=== PATIENT | male | born 1995 | race Caucasian/White ===

== ENCOUNTER 2020-10-12 18:26 | Emergency (ER) | payer MEDICAID ==
[~2020-10-12] VITALS: Ht 175.3 cm; Wt 81.6 kg
[2020-10-12 18:26] VITALS: BP_SYST 142
--- NOTE | 2020-10-12 18:26 | NUR ---
PT TO BED 5 FOR EVALUATION
--- NOTE | 2020-10-12 18:30 | NUR ---
DR. BRUNNER AT BEDSIDE TO EVALUATE PT STATUS
--- NOTE | 2020-10-12 18:30 | NUR ---
PT BIB EMS FOR ALTERED BEHAVIOR. PT WAS FOUND WONDERING THE NEIGHBORHOOD KNOCKING ON DOORS AND ACTING PARANOID. PT WAS RECENTLY RELEASED FROM [facility] AND ADMITS TO NONCOMPLIANCE OF MEDICATION FOR THE PAST FEW DAYS. PT REPORTS MARIJUANA USE AND PRE-EXISTING MENTAL HEALTH ISSUE.PT APPEARS SCARED AND HAS ERRATIC BEHAVIOR. PT CONTINUES TO HALLUCINATE AND BELIEVES THAT PEOPLE ARE COMING THROUGH THE MAR[place]. PT ATTACHED TO MONITOR WITH STABLE V/S.
--- NOTE | 2020-10-12 18:30 | NUR ---
JADE PAUL AT BEDSIDE TO WRITE 5150 HOLD/DTS.
[2020-10-12] MEDS ORDERED: HALOPERIDOL LACTATE 5 MG/ML VIAL ONE (18:33)
--- NOTE | 2020-10-12 18:40 | NUR ---
IV PLACED 20G HL IN RIGHT ARM.
[2020-10-12] MEDS ORDERED: HALOPERIDOL LACTATE 5 MG/ML VIAL IM ONE (18:45)
[2020-10-12] MEDS ORDERED: NACL 0.9% 1,000 ML IV ONE (18:45)
--- NOTE | 2020-10-12 18:45 | NUR ---
SECURITY AT BEDSIDE TO LEON PT FOR WEAPONS
--- NOTE | 2020-10-12 18:50 | NUR ---
I notified Astrid & Shady Sr, mother and father PT is here in ER "I'm okay" and give information re: Emergency Room PT. status Per patient requested. Patient Per Father Patient recent treatment centergiven Vivitrol injection3 weeks ago and "PT on Limictal for mild bipolar". Astrid Teague
[2020-10-12 18:57] LABS: BASOPHILS # (AUTO) 0.1 K/uL (0.0-0.2); BASOPHILS % (AUTO) 0.4 % (0.0-2.0); EOSINOPHILS # (AUTO) 0.1 K/uL (0.0-0.4); EOSINOPHILS % (AUTO) 0.7 % (0.0-4.0); HEMATOCRIT 46.5 % (36-54); HEMOGLOBIN 16.3 g/dL (14.0-18.0); LYMPHOCYTES # (AUTO) 1.1 K/uL (1.0-5.5); LYMPHOCYTES % (AUTO) 8.5 % (20.5-51.5); MEAN CORPUSCULAR HEMOGLOBIN 31 pg (27-31); MEAN CORPUSCULAR HGB CONC 35 % (32-36); MEAN CORPUSCULAR VOLUME 87 fL (79.0-98.0); MONOCYTES # (AUTO) 1.2 K/uL (0.0-1.0); MONOCYTES % (AUTO) 9.1 % (1.7-9.3); NEUTROPHILS # (AUTO) 10.9 K/uL (1.8-7.7); NEUTROPHILS % (AUTO) 81.3 % (40.0-70.0); PLATELET COUNT (AUTO) 266 K/uL (130-430); RED BLOOD CELL COUNT(AUTO) 5.32 MIL/uL (4.2-6.2); RED CELL DISTRIBUTION WIDTH 13.9 % (9.0-15.0); WHITE BLOOD COUNT (AUTO) 13.4 K/uL (4.8-10.8)
[2020-10-12 19:09] LABS: ANION GAP 12 (5-15); CALCIUM 9.2 mg/dL (8.4-11.0); CHLORIDE 96 mmol/L (98-107); CREATININE 1.28 mg/dL (0.55-1.30); GFR AFRICAN AMERICAN 87 mL/min (>90); GLUCOSE 121 mg/dL (70-99); POTASSIUM 3.3 mmol/L (3.5-5.1); SODIUM SERUM 134 mmol/L (136-145); UREA NITROGEN, BLOOD 16 mg/dL (8-21)
[2020-10-12 19:19] LABS: ALANINE AMINOTRANSFERASE 25 U/L (12-78); ALBUMIN 4.5 g/dL (3.4-4.8); ASPARTATE AMINOTRANSFERASE 23 U/L (10-37); TOTAL BILIRUBIN 2.4 mg/dL (0.0-1.0)
[2020-10-12 19:20] LABS: ACETAMINOPHEN < 1 ug/mL (1-30); ALCOHOL, BLOOD < 3 mg/dL (<10)
--- NOTE | 2020-10-12 19:45 | NUR ---
PT RESTING QUIETLY IN NO DISTRESS AWAITING DISPOSITION.
[2020-10-12 19:46] LABS: CKMB RELATIVE INDEX 0.9 (0.0-2.9); CREATINE KINASE MB 4.4 ng/mL (0-3.6)
--- NOTE | 2020-10-12 20:30 | NUR ---
PT AWAITING DISPOSITION/PSYCH PLACEMENT.
--- NOTE | 2020-10-12 21:45 | NUR ---
PT SLEEPING IN NO DISTRESS.
--- NOTE | 2020-10-12 23:00 | NUR ---
PT IS STILL SLEEPING IN NO DISTRESS. V/S STABLE. PT NEEDS BEHAVIORAL PLACEMENT.
--- NOTE | 2020-10-13 00:45 | NUR ---
ATTEMPTING TO FIND MENTAL HEALTH PLACEMENT FOR PT TO NO AVAIL. PT CONTINUES TO SLEEP IN NO APPARENT DISTRESS.
--- NOTE | 2020-10-13 02:30 | NUR ---
NO CHANGE IN PT STATUS TO REPORT. V/S STABLE. PT AWAITING MENTAL HEALTH PLACEMENT.
--- NOTE | 2020-10-13 02:51 | NUR ---
REPORT TO GIBRAN GAFFNEY WHO WILL ASSUME CARE.
--- NOTE | 2020-10-13 03:50 | NUR ---
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 Dallas aware
--- NOTE | 2020-10-13 04:25 | NUR ---
Dr. Dallas [facility] for pt re-eval
--- NOTE | 2020-10-13 07:20 | NUR ---
Patient in bed sleeping. Patient not presenting any signs of distress or complaint.
--- NOTE | 2020-10-13 07:42 | NUR ---
ER Dr. Perez at bedside examining patient.
[2020-10-13] MEDS ORDERED: LAM100 PO (09:54)
[2020-10-13] MEDS ORDERED: GABA-533 PO (09:54)
[2020-10-13] MEDS ORDERED: LamoTRIgine 25 MG TABLET PO ONE (10:00)
[2020-10-13] MEDS ORDERED: GABAPENTIN 300 MG CAPSULE PO ONE (10:00)
[2020-10-13] MEDS ORDERED: LamoTRIgine 25 MG TABLET PO SCH (10:00)
--- NOTE | 2020-10-13 11:15 | NUR ---
Patient given written and verbal discharge instructions and verbalizes understanding. ER MD discussed with patient the results and treatment provided. Patient in stable condition. ID arm band removed. IV catheter removed intact and dressing applied, no active bleeding. Rx of Lactimil and Gabapentin given. Patient educated on pain management and to follow up with PMD. Pain Scale 0/10. Opportunity for questions provided and answered. Medication side effect fact sheet provided.
[2020-10-13 12:27] VITALS: BP_SYST 128
== END 2020-10-13 12:27 | disposition home or self-care (01) ==
LOC: SED 18:26
DX: F23 Brief psychotic disorder (principal); F12.929 Cannabis use, unspecified with intoxication, unspecified
CPT/HCPCS: 36415; 80053; 82550; 82553; 85025; 93005; 96372; 99285; G0480; G0481; G0482; J1630; J7030